=== PATIENT | male | born 1945 ===

== ENCOUNTER → 2017-09-11 08:00 | Outpatient (CLI) | payer OTHER ==
[~2017-09-11] VITALS: Ht 177.8 cm; Wt 72.6 kg
[~2017-09-11 08:00] MED LIST: AVAPRO300 MG PO; METFORMIN HCL500 MG PO
== END | disposition home or self-care (01) ==
LOC: EKG 08:00 → ADM 10:15 → EDSTATUS 10:15 → SURH 09-20 10:15
DX: C20 Malignant neoplasm of rectum (principal); D12.9 Benign neoplasm of anus and anal canal; K92.2 Gastrointestinal hemorrhage, unspecified; Z86.010 Personal history of colon polyps; Z01.810 Encounter for preprocedural cardiovascular examination